=== PATIENT | male | born 1950 | race Caucasian/White ===

== ENCOUNTER → 2023-07-11 08:18 | Outpatient (REF) | payer MEDICARE, OTHER, SELFPAY | LOC: EMG 08:18 | PROVIDERS: ATTENDING PHYSICIAN Student in an Organized Health Care Education/Training Program; FAMILY PHYSICIAN Family Medicine | DX: G56.03 Carpal tunnel syndrome, bilateral upper limbs (principal); R20.0 Anesthesia of skin | CPT/HCPCS: 95886; 95911 ==

== ENCOUNTER → 2023-09-25 06:19 | Day surgery (SDC) | payer MEDICARE, OTHER, SELFPAY ==
[2023-09-25 07:41] LABS: Glucose - Point of Care 113 mg/dl (70-99)
== END ==
LOC: GI 06:19
PROVIDERS: ATTENDING PHYSICIAN Internal Medicine Gastroenterology
DX: Z12.11 Encounter for screening for malignant neoplasm of colon (principal); D12.0 Benign neoplasm of cecum; K57.30 Diverticulosis of large intestine without perforation or abscess without bleeding; K64.8 Other hemorrhoids
CPT/HCPCS: 45385; 88305; 82962

== ENCOUNTER 2024-10-31 13:45 | Emergency (ER) | payer MEDICARE, OTHER, SELFPAY ==
[2024-10-31 13:50] VITALS: BP 145/103
[2024-10-31 14:23] VITALS: BP 140/86
[2024-10-31 14:24] VITALS: BMI 32.3
[2024-10-31 14:30] VITALS: BP 140/86
[2024-10-31 14:32] LABS: % Basophils 0.6 % (0-2); % Eosinophils 1.1 % (0-6); % Immature Granulocytes 0.3 % (0-0.5); % Lymphocytes 23.2 % (20.5-51.1); % Monocytes 7.2 % (1.7-9.3); % Neutrophils 67.6 % (42.2-75.2); Absolute Eosinophils 0.1 10^3/uL (0-0.7); Absolute Lymphocytes 1.6 10^3/uL (1.2-3.4); Absolute Monocytes 0.5 10^3/uL (0.1-0.6); Absolute Neutrophils 4.7 10^3/uL (1.4-6.5); Hematocrit 47.8 % (39.0-52.0); Hemoglobin 16.7 g/dL (13.0-18.0); Mean Corp Hgb Conc. 34.9 g/dL (33.0-37.0); Mean Corpuscular Hgb 30.8 pg (27.0-31.0); Mean Platelet Volume 10.9 fL (7.4-10.4); Nucleated Red Blood Cells % 0 % (-); Platelet Count 172 10^3/uL (130-400); Red Blood Cell Count 5.43 10^6/uL (4.70-6.10); Red Cell Dist. Width 12.6 % (11.5-14.5)
[2024-10-31 15:00] VITALS: BP 137/83
[2024-10-31 15:05] LABS: Blood Urea Nitrogen 19 mg/dl (9-20); Calcium 9.5 mg/dl (8.4-10.2); Carbon Dioxide 23 mmol/L (22-30); Chloride 105 mmol/L (98-107); Estimated Creatinine Clearance 100 ml/min; Glucose 214 mg/dl (70-99); Magnesium 1.9 mg/dl (1.6-2.3); Sodium 140 mmol/L (135-145); eGFR > 60.00
[2024-10-31 15:29] LABS: TSH 0.97 uIU/ml (0.47-4.68)
--- NOTE | 2024-10-31 15:57 | ED.GENMED ---
History of Present Illness
General
Chief Complaint: Heart Rate Problem
Time Seen by Provider: 10/31/24 14:06
History of Present Illness
History of Present Illness:
Note:
CHIEF COMPLAINT(S)
Palpitations.
HISTORY OF PRESENT ILLNESS
The patient is a 74yo male with a history of paroxysmal episodes described as a 'pounding heartbeat' and episodes of rapid heartbeat. These palpitations become noticeable during physical activity, like working outside in the heat. The patient
reports that his heart rate was 110 beats per minute at rest, which he noted was slightly elevated. The episode persisted with a heart rate of 140 beats per minute before arriving here. The patient has a history of a cardiac device keaton that recorded
these episodes as unclassified. He denies chest pain and breathing difficulties during these episodes. He has not experienced similar episodes in the past that he could document. He took 325 mg of aspirin prior to arrival. The patient has essential
tremors and restrictive lung disease, likely secondary to obesity, and is currently on propranolol. He discontinued hydralazine due to hypotension. He is also pre-diabetic, with hypertension and hyperlipidemia.
ADDITIONAL HISTORY OBTAINED FROM SOURCES OTHER THAN THE PATIENT
According to a family member (spouse), the patient has not had a prior stroke or myocardial infarction.
ALLERGIES
Bee venom and wasp venom. No medication allergies.
PAST MEDICAL HISTORY
- Essential tremors
- Restrictive lung disease secondary to obesity
- Pre-diabetes
- Hypertension
- Hyperlipidemia
MEDICATIONS
- Propranolol
PHYSICAL EXAM
- Alert and oriented to person, place, and time
- Cardiovascular: Regular heart sounds without murmur
- Respiratory: Lungs clear to auscultation
- Abdomen: No distension
- Extremities: No edema, warm, and well-perfused
- Neurological: Grossly non-focal motor examination
PLAN
Check laboratory studies, including electrolytes (potassium, sodium) to ensure normal levels. Monitor heart rhythm and rate. Evaluate for potential tachycardia or other arrhythmias using telemetry. Discuss follow-up with cardiology for potential
outpatient cardiac monitoring to assess for arrhythmias further.
DIFFERENTIAL DIAGNOSIS
The Differential Diagnosis includes, in no particular order and is not limited to:
- Atrial fibrillation
- Supraventricular tachycardia
- Ventricular tachycardia
- Anxiety or panic disorder
- Hyperthyroidism
- Electrolyte imbalance
- Medication side effects
- Heart failure
- Ischemic heart disease
- Cardiomyopathy
EKG
My independent EKG interpretation is:
- Rhythm: Supraventricular tachycardia (SVT)
- Heart Rate: 135 beats per minute
- QRS Complex: Narrow
- Rate: Regular
- [place]: Normal
- Abnormalities: Non-specific ST-T changes
EKG
Normal sinus rhythm at a rate of 68 left axis deviation, incomplete right bundle branch block, nonspecific ST-T wave changes
Disposition:
SUMMARY OF ENCOUNTER
74-year-old male presented with palpitations characterized as a slow supraventricular tachycardia (SVT) which resolved spontaneously.
DISPOSITION
The patient is discharged with instructions to follow up as an outpatient with cardiology and primary care provider (PCP).
ASSESSMENT
Normalized heart rhythm during emergency room stay with resting heart rate in the 60s.
MANAGEMENT OF THE PATIENTS CARE WAS DISCUSSED WITH
Dr. Pagan from cardiology, who agreed with the SVT diagnosis and supported outpatient follow-up.
PLAN
Continue current medical management due to stable heart rate and rhythm. Outpatient follow-up with cardiology and PCP.
INDEPENDENT REVIEW OF LABS AND INTERPRETATION OF TESTS
My independent review of CBC is normal. My independent review of electrolytes reveals normal findings except for slight hyperglycemia.
MEDICAL DECISION MAKING
1. Number & Complexity of Problems:
- Chronic conditions affecting care: Essential tremors, restrictive lung disease secondary to obesity, pre-diabetes, hypertension, hyperlipidemia.
- Differential diagnoses include atrial fibrillation, supraventricular tachycardia, ventricular tachycardia.
2. Data Reviewed:
- Category 1: Labs reviewed showing normal CBC and electrolytes with slight hyperglycemia.
- Category 2: History provided by spouse.
3. Risk:
- Consideration for admission/observation was made due to complexity/risk, but outpatient management is appropriate based on stable vitals and follow-up reliability.
PATHOLOGIES TO CONSIDER
- Atrial fibrillation
- Supraventricular tachycardia
- Ventricular tachycardia
Past History
Past History
ED Past Medical History: Hypercholesterolemia
ED Past Surgical History: Other (Tosis (eye lids) surgery; hernia repairs; wisdom teeth)
Social History
Tobacco: Non-smoker
Personal:
Living: with family
Phy Exam
Physical Exam
Physical Exam:
.
Course
Orders/Labs/Results
Orders:
Orders
10/31/24 13:50
EKG [Electrocardiogram (*1)] Urgent
Reason for Study: Tachycardia
EKG- Treatment ONCE
10/31/24 14:11
Cardiac Monitoring- Treatment ONCE
10/31/24 14:16
EKG [Electrocardiogram (*1)] Urgent
Reason for Study: Bradycardia / Tachycardia
10/31/24 14:17
EKG- Treatment ONCE
10/31/24 14:27
Basic Metabolic Panel Urgent
Complete Blood Count/With Diff Urgent
Magnesium Urgent
TSH Urgent
10/31/24 16:06
Potassium Urgent
10/31/24 16:39
Potassium Chloride [KCl] 40 meq PO NOW STA
Abnormal Lab Results
10/31/24
14:27
MPV 10.9 H fL
(7.4-10.4)
Glucose 214 H mg/dl
(70-99)
10/31/24 14:27
10/31/24 16:06
Vital Signs
Initial and Last Documented VS:
Initial Vital Signs
Temp Pulse Resp BP Pulse Ox
98.4 F 136 18 145/103 96
10/31/24 13:50 10/31/24 13:50 10/31/24 13:50 10/31/24 13:50 10/31/24 13:50
Last Documented Vital Signs
Temp Pulse Resp BP Pulse Ox
98.6 F 61 17 133/81 97
10/31/24 14:30 10/31/24 16:45 10/31/24 16:45 10/31/24 16:41 10/31/24 16:45
*Pulse Oximetry
SaO2: 97
Oxygen Mode of Delivery: Room air
Patient hypoxic: no
*Super[employer] Interpretation
Rate: normal
Interpretation: normal
Rhythm: sinus
*Critical Care Note
Total Time (30-74mins, 75-104mins- exclusive of procedures): Not Applicable
ED Attending Note
-
Portions of this chart may have been created with voice recognition software.� Occasional wrong word or��sound alike� substitutions may have occurred due to the inherent limitations of voice recognition software.
Discharge Plan
Departure
Patient Disposition: Home (Routine Discharge)
Date of Disposition: 10/31/24
Time of Disposition: 15:58
Patient with high blood pressure during this ER visit?: Yes
Discharge Problem:
Supraventricular tachycardia
Instructions: Supraventricular tachycardia (SVT), Palpitations (DC), BLOOD PRESSURE
Prescriptions:
No Action
citalopram 10 MG tablet
10 mg PO DAILY
aspirin 81 MG tablet,chewable
81 mg PO DAILY
loratadine 10 MG tablet
10 mg PO DAILY
fenofibrate nanocrystallized 145 MG tablet
145 mg PO DAILY
docusate sodium 100 MG capsule
100 mg PO BID Qty: 20 0RF
epinephrine [EpiPen] 0.3 MG/0.3/SYRINGE auto-injector
0.3 mg IM ONCE PRN (Reason: allergic reaction) Qty: 1 1RF
Referrals:
Cookie Sinclair MD [Non-Admitting Privileges]
Activity Restrictions/Additional Instructions:
Please follow-up with your roentgenologist in the next 3 to 5 days. Return immediately for chest pain, shortness of breath, lightheadedness, passing out episode or any other concerns.
Interventions
Interventions:
*Risk Screen - Suicide Last Done: 10/31/24 13:50
*General Assessment Last Done: 10/31/24 13:50
*Neglect/Abuse Screening Last Done: 10/31/24 13:50
*ED- Fall Risk Assessment Last Done: 10/31/24 14:30
*ED COVID-19 Vaccine History Last Done: 10/31/24 14:30
*Nursing Disposition Last Done: 10/31/24 16:42
ED- Cardiac Assessment Last Done: 10/31/24 14:30
ED- Pulmonary Assessment Last Done: 10/31/24 14:30
Discharge Date and Time
Discharge Date/Time: 10/31/24 17:03
Print Language: LIBYAN
[2024-10-31 16:00] VITALS: BP 133/81
[2024-10-31 16:29] LABS: Potassium 3.5 mmol/L (3.5-5.1)
[2024-10-31 16:41] VITALS: BP 133/81
[2024-10-31] MEDS: KCL 40 MEQ PO (16:46)
== END 2024-10-31 17:03 | disposition home or self-care (01) ==
LOC: EMR 13:45
PROVIDERS: EMERGENCY PHYSICIAN Emergency Medicine; FAMILY PHYSICIAN Family Medicine
DX: I47.10 Supraventricular tachycardia, unspecified (principal); E78.00 Pure hypercholesterolemia, unspecified; G25.0 Essential tremor; I10 Essential (primary) hypertension; R73.03 Prediabetes; E66.9 Obesity, unspecified; J98.4 Other disorders of lung
CPT/HCPCS: 99284; 80048; 83735; 84132; 84443; 85025; 93005

== ENCOUNTER → 2025-01-07 10:48 | Outpatient (REF) | payer MEDICARE, OTHER, SELFPAY | LOC: HWRCS 10:48 | PROVIDERS: ATTENDING PHYSICIAN Internal Medicine Cardiovascular Disease; FAMILY PHYSICIAN Family Medicine | DX: R94.31 Abnormal electrocardiogram [ECG] [EKG] (principal) | CPT/HCPCS: 93306 ==

== ENCOUNTER → 2025-01-18 09:08 | Outpatient (REF) | payer MEDICARE, OTHER, SELFPAY ==
--- NOTE | 2025-01-13 08:54 | PN.DIAED02 ---
Referral
DSME Class Series Code: [id number]
Referred For: Diabetes Self-Management Training, Medical Nutrition Therapy, Self-Blood Glucose Monitoring, Long-Term Complication Instruction, Accute Complication Instruction, Continuous Glucose Monitoring, Medication management, Care Coordination,
Disease Management
PHI Release Authorization Form Signed: Yes
Demographic
(1) Type 2 diabetes mellitus without complications
Status: Chronic Onset Date: ~12/24/24 Code(s): E11.9 - Type 2 diabetes mellitus without complications
Patient's primary language-: Sinhala
Education: College degree
Occupation: Retired
- Social
Primary Support Person: Self & spouse
Primary Care Takers: Self & spouse
Living Arrangements: Self & spouse, Family
- Learning Methods
Preferred Method: Reading
Barriers to Learning: Hearing (hearing deficit, has hearing aids)
Glycemic Control
- Blood Glucose Monitoring Assessment
Date: 01/13/25
Blood glucose monitoring at home: Yes
Monitor Brands: OneTouch
Frequency: 1x per day
Time: fasting, after breakfast, after lunch, after dinner (fasting BS 84-137, 2 hour PP 84-98)
- Hyperglycemia Assessment
Experiences Hyperglycemia: No
Hitory of DKA/HHS: No
- Hypoglycemia Assessment
Patient carries glucose source: No
Patient experiences hypoglycemia: No
- Blood Glucose Monitoring Results
Source: meter
- Hemoglobin A1c
Date: 12/24/24
A1C Percentage (%): 6.7
Medical History of Diabetes
Family Diabetes History: Father
Previous Diabetes Education: No
Previous visit with Dietitian: No
Complications/Comorbidity/Specialist: Hypertension (HCTZ 25 mg QD, Propanolol HCL 40 mg BID), Hyperlipidemia (Atorvastatin 10 mg), Metabolic (DM2 500 mg Metformin, 2 tablets AM and 2 tablets PM), Neuropathy (essential tremors), Other / symptoms
(LExapro 10 mg QD, Claritin 10 mg QD if seasonal allergies, Fluticasone 50 mcg/act 1 spray each nostril BID, B complex)
Measures
- Anthropometrics
Height: 5 ft 10 in
Actual Weight: 219 lb 6.4 oz
- Blood Pressure / Pulse
Blood pressure: 140/70
- Diabetes Management
Medical Management for Diabetes: Complete physical exam (12/22/2024), Dental exam (07/22/2024), Dilated eye exam (12/11/2024), Other (Covid vax: 07/28/20, 08/18/2020, 03/15/2021, 02/22/2022)
Self-Care
- Tobacco Usage
Do you now, or have you ever smoked?: Never smoked
- Alcohol & Drugs Usage
Amount/day: Social Occasions (2/month)
- Meals & Dining
Meals & Dining: Patient skips meals: Yes (no breakfast), Food Intolerance / Allergy: No, Cultural / [place] Dietary Needs: No
Primary Food Ball Worker: Self & Spouse
Primary Teletypesetter Operator: Spouse
Dining Out Frequency: 1-3x per week
- Physical Activity
Physical Limitation: No
Patient participates in physical Activity: Yes (marisa once a week for 90 minutes, just started biking with spouse)
Activity Types: Biking, Other
Duration: 10-20 minutes
Frequency: 3-5x per week
- Self Foot-Care
Foot Problems: Neuropathy
- Patient-Self Assessment
Diabetes Knowledge: Fair
Feelings About Diabetes: Adaptation
General Health: Good
Importance of Health: Somewhat
Stress Level: Low
Diabetes Interferes With:: Family/social activities
Barriers to Diabetes Management: Nothing
Depression Survey Score: 1
- Diabetes Identification
Carries Diabetes Identification: No
Diabetes Identification Information Provided: Yes
Care Plan
- Education Needs
Patient Education Needs: Diabetes disease process, Chronic complications, Acute complications, Medication, Monitoring, Physical activity, Psychosocial Adjustment, Nutritional management, Goal setting & problem solving
Recommended Diabetes Training Program based on assessment: Outpatient Diabetes Education Program
- Plan of Care
Plan of Care:
01/13/2025 DSME INITIAL CONSULTATION
Met with participant and his today for registration and initiation of Diabetes Self-management. Pt was recommended by his PCP due to HbA1c of 6.7% on 12/24/2024. States he has had prediabetes for several years. Is prescribed Metformin 500
mg 2 tablets AM and PM, experiences no side effects. He disclosed that he does not eat breakfast, and takes 2 tablets with lunch between 11am - 1pm and 2 tablets with dinner between 5pm - 7pm. I asked him to contact the nurse at his PCP office to
discuss this, provide fasting and 2 hour postprandial bloos sugar and to inquire if dosing adjustment is needed. He just received a One Touch glucometer and has checked BS fasting AM (112-137) and 2 hours postprandial 84-98.
His provider wanted to prescribe Ozempic for weight loss. He and his asked to hold off on this until after they begin lifestyle interventions. Hsi provider also stated that his lungs are fine, it's the extra abdominal weight that may be
causing issues with breathing. They have changed their diet, and he has started biking daily with his . He also plays [employer] once a week for 90 minutes, and recently lost 10 lbs. We discussed the importance of physical activity in managing
blood sugar and can help with HTN, Cholesterol, depression, and weight loss.
We reviewed complications of diabetes, fasting and 2 hour post prandial glucose goals, signs and symptoms of hyperglycemia, signs and symptoms of hypoglycemia, and hypoglycemia protocol. He does not experience hypoglycemia symptoms, may on
occasion experience frequent thirst and urination.
I reviewed and provided diabetes management booklet, insurance billing code and advised she contact her health plan to discuss coverage and cost. He plans to contact his insurance company today for preferred brand of glucometer and will contact
us with this information to facilitate ordering additional glucose testing supplies.
He has phone # for office if additional needs arise prior to class.
--- NOTE | 2025-01-13 09:43 | PN.DIAED04 ---
Education Record
- Education Record
Class Attended: Other (INITIAL DSME CONSULTATION)
Instructor: Nurse Practitioner (NICHOL Gleason)
Pre-Program Knowledge: Needs review / Assistance
Pre-Test Score (%): 84
Goals
- Goal 1
Being Active: Exercise 15 minutes-3 times per week
Goals To Be Evaluated: Exercise 15 mins-3x/week
- Goal 2
Healthy Eating: Make better food choices
Goals To Be Evaluated: Make better food choices
- Goal 3
Monitoring: Follow monitoring schedule (Personal health goal: lost 5 lbs through diet and exercise)
Goals To Be Evaluated: Follow monitoring times
--- NOTE | 2025-01-19 12:32 | PN.DIAED04 ---
Education Record
- Education Record
Class Attended: Class 1
DSME Class Series Code: [id number]
Instructor: Nurse Practitioner (NICHOL Gleason)
Class Curriculum:
Outpatient Diabetes Education Program:
Class 1 (120 minutes)
Describe the diabetes disease process and treatment options
Diabetes management
Develop personal strategies to promote health and behavior change
Integrate psychosocial adjustment for daily living
Monitor blood glucose and other parameters. Interpret and use the results for self-management decision making
Prevent, detect, and treat acute complications
Class Length (mins): 120
Post-Class 1 Test Score (%): 94
--- NOTE | 2025-01-19 12:33 | PN.DIAED14 ---
This is to notify you that your patient with diabetes, JEWELS EASTMAN ( 1950), has enrolled in our diabetes self-management classes that are being held at [facility].
These classes will include an introduction to diabetes, diet, medication, exercise and prevention of complications. At the end of our class series, you will receive a report of your patient's participation and progress for your records.
Please contact me at the Diabetes Center, , if there is any particular information regarding your patient that might be helpful to me.
Sincerely,
Emmanuel GANDARA-SULAIMAN, [facility]
== END ==
LOC: DES 09:08
PROVIDERS: ATTENDING PHYSICIAN Family Medicine
DX: E11.9 Type 2 diabetes mellitus without complications (principal)
CPT/HCPCS: 99078

== ENCOUNTER → 2025-01-21 06:55 | Outpatient (REF) | payer MEDICARE, OTHER, SELFPAY | LOC: HWRCS 06:55 | PROVIDERS: ATTENDING PHYSICIAN Internal Medicine Cardiovascular Disease; FAMILY PHYSICIAN Family Medicine | DX: R94.31 Abnormal electrocardiogram [ECG] [EKG] (principal) | CPT/HCPCS: 78452; 93017; 93308; A9500; J2785 ==

== ENCOUNTER → 2025-01-25 09:28 | Outpatient (REF) | payer MEDICARE, OTHER, SELFPAY ==
--- NOTE | 2025-01-26 10:20 | PN.DIAED04 ---
Education Record
- Education Record
Class Attended: Class 2
DSME Class Series Code: [id number]
Instructor: Registered Dietitian (Naima Paredes, RD, LDN, CDE)
Class Curriculum:
Outpatient Diabetes Education Program:
Class 2 (120 minutes)
Incorporate nutritional management into lifestyle
Understanding nutritional value
Understanding carbohydrate counting
Class Length (mins): 120
== END ==
LOC: DES 09:28
PROVIDERS: ATTENDING PHYSICIAN Family Medicine
DX: E11.9 Type 2 diabetes mellitus without complications (principal)
CPT/HCPCS: 99078

== ENCOUNTER → 2025-02-08 10:15 | Outpatient (REF) | payer MEDICARE, OTHER, SELFPAY ==
--- NOTE | 2025-02-09 10:41 | PN.DIAED04 ---
Education Record
- Education Record
Class Attended: Class 4
DSME Class Series Code: [id number]
Instructor: Nurse Practitioner (NICHOL Gleason)
Class Curriculum:
Outpatient Diabetes Education Program:
Class 4 (120 minutes)
Develop personal strategies to promote health and behavior change
Incorporate physical activity into lifestyle
Utilize medications safety for maximum therapeutic effectiveness
Understand different medication/insulin mechanism of action
Preparing for travel
Class Length (mins): 120
Post-Class 4 Test Score (%): 93
== END ==
LOC: DES 10:15
PROVIDERS: ATTENDING PHYSICIAN Family Medicine
DX: E11.9 Type 2 diabetes mellitus without complications (principal)
CPT/HCPCS: 99078

== ENCOUNTER → 2025-02-15 09:08 | Outpatient (REF) | payer MEDICARE, OTHER, SELFPAY ==
--- NOTE | 2025-02-17 09:15 | PN.DIAED04 ---
Education Record
- Education Record
Class Attended: Class 5
DSME Class Series Code: [id number]
Instructor: Registered Nurse (Tammy Caban RN)
Class Curriculum:
Outpatient Diabetes Education Program:
Class 5 (120 minutes)
Prevent, detect, and treat acute complications
Prevent, detect, and treat chronic complications through risk reduction
Develop personal strategies to address psychosocial issues and concerns
Development of diabetes self-management support plan
Letter to physician with DSMS plan attached sent
Class Length (mins): 120
Post-Program Knowledge: Demonstrates competency
Post-Test Score (%): 90
Post-Program Assessment
- Post-Program Assessment
Actual Weight: 212 lb 6.4 oz
Blood pressure: 116/68
Post-Program Depression Survey Score: 1
Reviewing Previous Goals?: Yes
Pre-Program Depression Survey Score: 1
- Goals 1 Evaluation
Goals To Be Evaluated: Exercise 15 mins-3x/week
- Goals 2 Evaluation
Goals To Be Evaluated: Make better food choices
- Goals 3 Evaluation
Goals To Be Evaluated: Follow monitoring times
--- NOTE | 2025-02-17 13:49 | PN.DIAED20 ---
This is to notify you that your patient with diabetes, JEWELS EASTMAN ( 1950), has attended the following Diabetes Self-Management Education Classes.
__ Class 1 (120 minutes): Diabetes Overview - monitoring, stress/psychosocial adjustment, support, goal setting
__ Class 2 (120 minutes): Meal Planning - serving sizes, menu plans
_Missed_ Class 3 (120 minutes): Introduction to Carbohydrate Counting, Analyzing Food Labels
__ Class 4 (120 minutes): Medication, Exercise and Activity
__ Class 5 (120 minutes): Sick Day Management, Strategies to Reduce Complications, Problem Solving, Resources
The following behavioral goals were identified:
Exercise 15 mins-3x/week
Make better food choices
Follow monitoring times
A follow-up call will be made within three to six months to evaluate attainment of these goals and to check post-program Hemoglobin A1c and overall progress. All class participants are encouraged to contact me if I can be any further assistance in
learning how to manage their diabetes.
Sincerely,
Emmanuel GANDARA-,[facility]
== END ==
LOC: DES 09:08
PROVIDERS: ATTENDING PHYSICIAN Family Medicine
DX: E11.9 Type 2 diabetes mellitus without complications (principal)
CPT/HCPCS: 99078

== ENCOUNTER → 2025-03-08 14:47 | Outpatient (REF) | payer MEDICARE, OTHER, SELFPAY ==
--- NOTE | 2025-03-08 15:05 | PN.DIAED04 ---
Education Record
- Education Record
Class Attended: Class 3
DSME Class Series Code: [id number]
Instructor: Registered Dietitian (Naima Paredes, RD, LDN, CDE)
Class Curriculum:
Outpatient Diabetes Education Program:
Class 3 (120 minutes)
Incorporate nutritional management into lifestyle
Class Length (mins): 120
Post-Class 2 & 3 Test Score (%): 88
--- NOTE | 2025-03-08 15:06 | PN.DIAED16 ---
This is to notify you that your patient with diabetes, JEWELS EASTMAN ( 1950), has attended the entire series of Diabetes Self-Management Education Classes.
Class 1 (120 minutes): Diabetes Overview - monitoring, stress/psychosocial adjustment, support, goal setting
Class 2 (120 minutes): Meal Planning - serving sizes, menu plans
Class 3 (120 minutes): Introduction to Carbohydrate Counting, Analyzing Food Labels
Class 4 (120 minutes): Medication, Exercise and Activity
Class 5 (120 minutes): Sick Day Management, Strategies to Reduce Complications, Problem Solving, Resources
The following behavioral goals were identified:
Goal #1: Exercise 15 mins-3x/week
Goal #2: Make better food choices
Goal #3: Follow monitoring times
A follow-up call will be made within three to six months to evaluate attainment of these goals and to check post-program Hemoglobin A1c and overall progress. All class participants are encouraged to contact me if I can be any further assistance in
learning how to manage their diabetes.
Sincerely,
Emmanuel GANDARA-,[facility]
== END ==
LOC: DES 14:47
PROVIDERS: ATTENDING PHYSICIAN Family Medicine
DX: E11.9 Type 2 diabetes mellitus without complications (principal)
CPT/HCPCS: 99078